=== PATIENT | female | born 1960 | race Caucasian/White ===

== ENCOUNTER 2018-02-13 19:00 | Inpatient (IN) | payer BC, OTHER ==
[~2018-02-13] VITALS: Ht 149.9 cm; Wt 90.9 kg
[2018-02-13] MEDS ORDERED: ondansetron/PF 4mg/2ml inj IV ONE (19:30)
[2018-02-13] MEDS ORDERED: ketorolac trometh. 30mg/ml inj. IV ONE (19:30)
[2018-02-13] MEDS ORDERED: morphine 4 MG/ML inj SYRINge IV PRN ×3 (19:30→23:10)
[2018-02-13] MEDS ORDERED: normal saline 1000ML IV soln IVB ONE (19:30)
[2018-02-13 19:53] LABS: URINE HCG NEGATIVE (NEG)
[2018-02-13 20:00] LABS: BASOPHILS % (AUTO) 0.2 % (0-1); EOSINOPHILS # (AUTO) 0.3 X10'3 (0-0.9); EOSINOPHILS % (AUTO) 1.6 % (0-6); HEMATOCRIT 39.8 % (35.0-45.0); HEMOGLOBIN 13.4 g/dl (12.0-16.0); LYMPHOCYTES # (AUTO) 2.2 X10'3 (1.1-4.8); LYMPHOCYTES % (AUTO) 11.9 % (21-51); MEAN CORPUSCULAR HEMOGLOBIN 28.4 PG (27.0-31.0); MEAN CORPUSCULAR HGB CONC 33.6 % (33.0-36.5); MEAN CORPUSCULAR VOLUME 84.4 FL (78-98); MEAN PLATELET VOLUME 8.1 FL (7.4-10.4); MONOCYTES # (AUTO) 0.9 X10'3 (0-0.9); MONOCYTES % (AUTO) 4.9 % (2-12); NEUTROPHILS % (AUTO) 81.4 % (42-75); PLATELET COUNT 413 X10'3 (140-440); RED BLOOD COUNT 4.71 X10'6 (4.20-5.60); RED CELL DISTRIBUTION WIDTH 14.4 % (11.5-14.5); WHITE BLOOD COUNT 18.5 X10'3 (4.5-11.0)
[2018-02-13 20:15] LABS: ALANINE AMINOTRANSFERASE 33 U/L (12-78); ALBUMIN 4.2 G/DL (3.4-5.0); ALKALINE PHOSPHATASE 131 IU/L (46-116); ANION GAP 10 (8-16); ASPARTATE AMINO TRANSFERASE 17 U/L (10-37); BILIRUBIN,TOTAL 0.4 MG/DL (0.1-1.0); BLOOD UREA NITROGEN 16 MG/DL (7-18); BUN/CREATININE RATIO 15.7 (6.6-38.0); CALCIUM 9.5 MG/DL (8.5-10.1); CHLORIDE 102 MMOL/L (99-107); CREATININE 1.02 MG/DL (0.40-0.90); GLUCOSE 101 MG/DL (70-104); LIPASE 111 U/L (73-393); POTASSIUM 3.5 MMOL/L (3.5-5.1); SODIUM 139 MMOL/L (135-145); TOTAL CARBON DIOXIDE 26.9 MMOL/L (24-32); TOTAL PROTEIN 8.4 G/DL (6.4-8.2); eGFR 56 ML/MIN
[2018-02-13 20:17] LABS: CLARITY,URINE CLEAR (Clear); GLUCOSE, URINE NEGATIVE (Neg); KETONES,URINE NEGATIVE (Neg); LEUKOCYTE ESTERASE ,URINE NEGATIVE (Neg); NITRITES, URINE NEGATIVE (Neg); OCCULT BLOOD,URINE NEGATIVE (Neg); PH,URINE 7.5 (4.8-8.0); PROTEIN,URINE NEGATIVE (Neg); UROBILINOGEN,URINE 0.2 E.U/dL (0.2-1.0)
[2018-02-13 20:19] LABS: COLOR,URINE STRAW (Yellow); UA COLLECTION TYPE CLN CATCH MIDSTREAM
[2018-02-13] MEDS ORDERED: levoFLOXACIN-Levaquin 750MG/D5 150 ML IV ONE (20:25)
[2018-02-13 20:29] LABS: PROTHROMBIN TIME 9.7 SECONDS (9.0-12.0)
[2018-02-13] MEDS ORDERED: morphine 4 MG/ML inj SYRINge IV ONE (21:00)
[2018-02-13] MEDS: CefTRIAXone 2gm/D5W 50ml 50 ML IV ONE ×2 (21:03→21:21)
[2018-02-13] MEDS ORDERED: piperacillin/tazo 3.375gm/50ml 50 ML IV ONE (21:05)
[2018-02-13] MEDS ORDERED: HYDROmorphone 1 mg/ml syringe IV PRN ×2 (21:15)
[2018-02-13] MEDS ORDERED: ondansetron/PF 4mg/2ml inj IV PRN ×2 (21:15→23:10)
[2018-02-13] MEDS ORDERED: CYCL5TAB PO (21:23)
[2018-02-13] MEDS ORDERED: GABA-532 PO (21:23)
[2018-02-13] MEDS ORDERED: GABA800T2 PO (21:23)
[2018-02-13] MEDS ORDERED: HYDR12.5 PO (21:25)
[2018-02-13] MEDS ORDERED: MAGN296S50 PO (21:27)
[2018-02-13] MEDS ORDERED: BUPIVAcaine/PF 2.5mg/ml (0.25%) 10ml vial ONE (21:45)
[2018-02-13] MEDS ORDERED: midazolam 2 mg/2 ml injection ONE (21:56)
[2018-02-13] MEDS ORDERED: fentaNYL/PF 50MCG/1 ML 2ML syringe ONE (21:56)
[2018-02-13] MEDS ORDERED: propofol inj 20 ML IV ONE (21:58)
[2018-02-13] MEDS ORDERED: rocuronium 10mg/ml inj IV ONE (21:58)
[2018-02-13] MEDS ORDERED: LIDOcaine 2% (20mg/ml) 5ml vial ONE (21:58)
[2018-02-13] MEDS ORDERED: succinylcholine 20mg/ml inj IV ONE (22:12)
[2018-02-13] MEDS ORDERED: sevoflurane 250ml liquid IH ONE (22:12)
[2018-02-13] MEDS ORDERED: dexamethasone sod phosphate 10mg/ml inj ONE (22:12)
[2018-02-13] MEDS ORDERED: glycopyrrolate 0.2mg/ml inj ONE (22:58)
[2018-02-13] MEDS ORDERED: neostigmine methylsulfate 1 MG/ML 10ml vial ONE (22:58)
[2018-02-13] MEDS ORDERED: ondansetron/PF 4mg/2ml inj ONE (22:58)
[2018-02-13 23:05] VITALS: BP 106/62
[2018-02-13] MEDS ORDERED: proCHLORperazine 10 MG/2 ml inj IV PRN (23:10)
[2018-02-13] MEDS ORDERED: ringers solution, lacted 1,000 ML IV SCH (23:10)
[2018-02-13] MEDS ORDERED: meperidine/PF 25mg/ml syringe IV PRN ×3 (23:10)
[2018-02-13 23:15] VITALS: BP 108/60
[2018-02-13 23:25] VITALS: BP 114/74
[2018-02-13 23:35] VITALS: BP 126/64
[2018-02-13 23:45] VITALS: BP 118/66
[2018-02-14] VITALS (11 sets, daily range): BP systolic 112–136; BP diastolic 61–76
[2018-02-14] MEDS: normal saline 1000ml 1,000 ML IV SCH ×3 (00:33→15:33)
[2018-02-14] MEDS: piperacillin/tazo 3.375gm/50ml 50 ML IV SCH ×3 (02:06→13:31)
[2018-02-14 05:08] LABS: BASOPHILS % (AUTO) 0.1 % (0-1); EOSINOPHILS # (AUTO) 0.3 X10'3 (0-0.9); HEMATOCRIT 35.5 % (35.0-45.0); HEMOGLOBIN 11.8 g/dl (12.0-16.0); LYMPHOCYTES # (AUTO) 0.7 X10'3 (1.1-4.8); LYMPHOCYTES % (AUTO) 4.2 % (21-51); MEAN CORPUSCULAR HEMOGLOBIN 28.5 PG (27.0-31.0); MEAN CORPUSCULAR HGB CONC 33.3 % (33.0-36.5); MEAN CORPUSCULAR VOLUME 85.6 FL (78-98); MEAN PLATELET VOLUME 8.6 FL (7.4-10.4); MONOCYTES # (AUTO) 0.1 X10'3 (0-0.9); MONOCYTES % (AUTO) 0.5 % (2-12); NEUTROPHILS # (AUTO) 14.8 X10'3 (1.8-7.7); NEUTROPHILS % (AUTO) 93.2 % (42-75); PLATELET COUNT 325 X10'3 (140-440); RED BLOOD COUNT 4.15 X10'6 (4.20-5.60); RED CELL DISTRIBUTION WIDTH 14.3 % (11.5-14.5); WHITE BLOOD COUNT 15.9 X10'3 (4.5-11.0)
[2018-02-14 05:29] LABS: ALANINE AMINOTRANSFERASE 34 U/L (12-78); ALBUMIN 3.3 G/DL (3.4-5.0); ALBUMIN/GLOBULIN RATIO 0.8 (1.1-1.5); ALKALINE PHOSPHATASE 117 IU/L (46-116); ANION GAP 9 (8-16); ASPARTATE AMINO TRANSFERASE 20 U/L (10-37); BILIRUBIN,TOTAL 0.6 MG/DL (0.1-1.0); BLOOD UREA NITROGEN 15 MG/DL (7-18); BUN/CREATININE RATIO 13.6 (6.6-38.0); CALCIUM 8.3 MG/DL (8.5-10.1); CHLORIDE 104 MMOL/L (99-107); GLUCOSE 164 MG/DL (70-104); POTASSIUM 4.4 MMOL/L (3.5-5.1); SODIUM 140 MMOL/L (135-145); TOTAL CARBON DIOXIDE 26.6 MMOL/L (24-32); TOTAL PROTEIN 7.4 G/DL (6.4-8.2); eGFR 51 ML/MIN
[2018-02-14] MEDS ORDERED: pneumococcal 23-VAL P-sac vacc 25 mcg/0.5ml vial IMVAC ONE (06:05)
[2018-02-14] MEDS ORDERED: traMADol 50MG tablet PO ONE (16:10)
[2018-02-14] MEDS ORDERED: TRAM50TA2 PO (18:01)
== END 2018-02-14 18:37 | disposition home or self-care (01) | DRG 342 ==
LOC: ER 19:01 → SUR 3N 21:15
PROVIDERS: ADMIT Internal Medicine; ATTEND Internal Medicine
PROC: 0DTJ4ZZ Resection of Appendix, Percutaneous Endoscopic Approach (ICD-10-PCS; principal; 2018-02-13 22:12)
PROC: 3E02340 Introduction of Influenza Vaccine into Muscle, Percutaneous Approach (ICD-10-PCS; 2018-02-14)
DX: K35.30 Acute appendicitis with localized peritonitis, without perforation or gangrene (principal); E87.1 Hypo-osmolality and hyponatremia; I10 Essential (primary) hypertension; I73.9 Peripheral vascular disease, unspecified; K57.30 Diverticulosis of large intestine without perforation or abscess without bleeding; Z87.891 Personal history of nicotine dependence; Z90.710 Acquired absence of both cervix and uterus; Z88.8 Allergy status to other drugs, medicaments and biological substances; Z23 Encounter for immunization
CPT/HCPCS: 96374; 96375; 96376; 99285; Z7506; 36415; 74176; 80053; 81003; 81025; 83690; 85025; 85610; 87070; 90732; 93005; A7000; G0378; J0330; J0696; J1100; J1170; J1885; J1956; J2001; J2250; J2270; J2405; J2543; J2704; J2710; J3010; J3490; J7030; J7120

== ENCOUNTER 2019-03-04 10:19 | Emergency (ER) | payer BC, SELFPAY ==
[~2019-03-04] VITALS: Ht 149.9 cm; Wt 98.6 kg
[~2019-03-04 10:19] MED LIST: CYCL5TAB PO; GABA-532 PO; GABA800T11 PO; HYDR12.5 PO; MAGN296S50 PO
[2019-03-04 11:05] LABS: BASOPHILS # (AUTO) 0.1 X10'3 (0-0.2); BASOPHILS % (AUTO) 0.4 % (0-1); EOSINOPHILS % (AUTO) 0.1 % (0-6); HEMATOCRIT 37.7 % (35.0-45.0); HEMOGLOBIN 12.9 g/dl (12.0-16.0); LYMPHOCYTES # (AUTO) 1.8 X10'3 (1.1-4.8); LYMPHOCYTES % (AUTO) 12.1 % (21-51); MEAN CORPUSCULAR HEMOGLOBIN 29.3 PG (27.0-31.0); MEAN CORPUSCULAR HGB CONC 34.1 g/dL (33.0-36.5); MEAN CORPUSCULAR VOLUME 85.9 FL (78-98); MEAN PLATELET VOLUME 8.3 FL (7.4-10.4); MONOCYTES # (AUTO) 0.6 X10'3 (0-0.9); MONOCYTES % (AUTO) 4.1 % (2-12); NEUTROPHILS # (AUTO) 12.4 X10'3 (1.8-7.7); NEUTROPHILS % (AUTO) 83.3 % (42-75); PLATELET COUNT 403 X10'3 (140-440); RED BLOOD COUNT 4.39 X10'6 (4.20-5.60); RED CELL DISTRIBUTION WIDTH 13.4 % (11.5-14.5); WHITE BLOOD COUNT 14.9 X10'3 (4.5-11.0)
[2019-03-04 11:06] LABS: CLARITY,URINE CLEAR (Clear); COLOR,URINE YELLOW (Yellow); GLUCOSE, URINE NEGATIVE (Neg); KETONES,URINE NEGATIVE (Neg); LEUKOCYTE ESTERASE ,URINE SMALL (Neg); NITRITES, URINE NEGATIVE (Neg); OCCULT BLOOD,URINE NEGATIVE (Neg); PROTEIN,URINE NEGATIVE (Neg); UROBILINOGEN,URINE 0.2 E.U/dL (0.2-1.0)
[2019-03-04 11:07] LABS: UA COLLECTION TYPE CLN CATCH MIDSTREAM
[2019-03-04 11:14] LABS: SQUAMOUS EPITHELIAL CELL,UR MODERATE /LPF (FEW)
[2019-03-04 11:16] LABS: BACTERIA,URINE FEW /HPF (Neg); RBC,URINE NONE SEEN /HPF (0-2)
[2019-03-04 11:20] LABS: ALANINE AMINOTRANSFERASE 32 U/L (12-78); ALBUMIN 4.1 G/DL (3.4-5.0); ALBUMIN/GLOBULIN RATIO 0.9 (1.1-1.5); ALKALINE PHOSPHATASE 121 IU/L (46-116); ANION GAP 16 (8-16); ASPARTATE AMINO TRANSFERASE 23 U/L (10-37); BILIRUBIN,TOTAL 0.4 MG/DL (0.1-1.0); BLOOD UREA NITROGEN 22 MG/DL (7-18); BUN/CREATININE RATIO 19.6 (6.6-38.0); CALCIUM 9.9 MG/DL (8.5-10.1); CHLORIDE 98 MMOL/L (99-107); CREATININE 1.12 MG/DL (0.40-0.90); GLUCOSE 105 MG/DL (70-104); SODIUM 140 MMOL/L (135-145); TOTAL CARBON DIOXIDE 26.1 MMOL/L (24-32); TOTAL PROTEIN 8.7 G/DL (6.4-8.2); eGFR 50 ML/MIN
[2019-03-04 11:22] LABS: POTASSIUM 2.7 MMOL/L (3.5-5.1)
--- NOTE | 2019-03-04 11:23 | NUR ---
Critcal Lab Value of K 2.7 reported to JUAN Velazquez
--- NOTE | 2019-03-04 11:32 | NUR ---
TELE NEURO CONSULT INITIATED
[2019-03-04] MEDS ORDERED: potassium Cl 20 mEq SR tablet PO STA (11:43)
[2019-03-04] MEDS ORDERED: ondansetron 4mg rapidly disintigrating tab PO ONE (11:45)
[2019-03-04] MEDS ORDERED: LORazepam 2 mg/ml vial IM ONE (12:20)
--- NOTE | 2019-03-04 14:10 | NUR ---
pt. back from ct
[2019-03-04 15:19] VITALS: BP 143/65
== END 2019-03-04 15:18 | disposition home or self-care (01) ==
LOC: ER 10:20
DX: E87.6 Hypokalemia (principal); R25.1 Tremor, unspecified; I10 Essential (primary) hypertension; F10.99 Alcohol use, unspecified with unspecified alcohol-induced disorder; Y90.9 Presence of alcohol in blood, level not specified; Z90.710 Acquired absence of both cervix and uterus; Z88.5 Allergy status to narcotic agent; Z88.8 Allergy status to other drugs, medicaments and biological substances; Z79.899 Other long term (current) drug therapy
CPT/HCPCS: 36415; 70551; 80053; 81001; 82948; 84443; 85025; 87088; 96372; 99284; J2060